=== PATIENT | female | born 1985 | race Caucasian/White ===

== ENCOUNTER 2016-10-05 12:28 | Emergency (ER) | payer OTHER ==
[~2016-10-05] VITALS: Ht 160 cm; Wt 94.8 kg
[~2016-10-05 12:28] MED LIST: CATAFLAM50 MG PO; CLARITAN; CLARITIN-D 12 H1 TAB PO; CLINDAMYCIN HC300 MG PO; DAYPRO600 M1 PO; ESOMEPRAZOLE MA40 M1 PO; FLAGYL500 MG PO; FLONASE0.05 MG/AC; FLOVENT HFA12 GM IH; FLUOXETINE HCL10 MG PO; FLUOXETINE20 MG PO; FLUTICASON0.05 MG/A1 NAS; GOOD NEIGHBOR L10 MG PO; GOOD SENSE ALLE10 MG PO; IBUPROFEN600 MG PO; IPRATROPIUM SPR 0.0; LORATADINE10 MG PO; MACROBID100 M1 PO; MIRALAX POWDER17 G1 PO; MOTRIN800 MG PO; PREDNISONE10 MG PO; PROAIR HFA AER; PROAIR HFA0.09 MG/AC IH; PROAIR HFA8.5 GM IH; PROZAC; PROZAC40 MG PO; QVAR 40 MCG; QVAR0.08 MG/AC; QVAR0.08 MG/AC INH; ROBITUSSIN AC 110 ML PO; Sarafem20 MG PO; ULTRAM50 MG PO; VICODIN 5/500 505 MG PO; ZITHROMAX250 MG PO
== END 2016-10-05 14:50 | disposition home or self-care (01) ==
LOC: ED 12:28
DX: S61.211A Laceration without foreign body of left index finger without damage to nail, initial encounter (principal); Z88.0 Allergy status to penicillin; Z88.8 Allergy status to other drugs, medicaments and biological substances; Z79.899 Other long term (current) drug therapy; W26.0XXA Contact with knife, initial encounter; Y93.9 Activity, unspecified; Y92.9 Unspecified place or not applicable; Y99.9 Unspecified external cause status

== ENCOUNTER → 2017-01-05 | Outpatient (CLI) | payer OTHER ==
[2017-01-05 16:35] LABS: BASO % 0.1 % (0.0-1.0); EOS # 0.1 10*3/uL (0.0-0.4); EOS % 1.2 % (1.0-4.0); HEMATOCRIT 36.3 % (37.0-47.0); HEMOGLOBIN 11.7 g/dl (12.0-16.0); LYMPH # 2.6 10*3/uL (1.3-4.4); LYMPH % 26.5 % (27.0-41.0); MEAN CELL VOLUME 91.4 fl (81.0-99.0); MEAN CORPUSCULAR HGB 29.5 pg (27.0-31.0); MEAN CORPUSCULAR HGB CONC 32.2 g/dl (33.0-37.0); MEAN PLATELET VOLUME 9.5 fl (9.6-12.3); MONO % 10.3 % (3.0-9.0); NEUT # 6.1 10*3/uL (2.3-7.9); NEUT % 61.5 % (47.0-73.0); PLATELET COUNT AUTOMATED 368 10*3/uL (130-400); RED BLOOD COUNT 3.97 10*6/uL (4.10-5.10); RED CELL DISTRI WIDTH 13.6 % (0-14.5); WHITE BLOOD COUNT 9.8 10*3/uL (4.8-10.8)
[2017-01-05 16:56] LABS: HEMOGLOBIN A1c 5.8 % (4.8-5.6)
[2017-01-05 17:09] LABS: ALBUMIN 3.4 gm/dl (3.1-4.5); ALKALINE PHOSPHATASE 91 U/L (45-117); BILIRUBIN, TOTAL 0.2 mg/dl (0.2-1.0); BUN 10 mg/dl (7-24); CARBON DIOXIDE 28 mmol/L (21-32); CHLORIDE 106 mmol/L (98-107); EST GLOM FILT AFRICAN AMERICAN > 60 ml/min; GLUCOSE 75 mg/dL (65-99); POTASSIUM 3.5 mmol/L (3.5-5.1); SGOT/AST 13 IU/L (3-35); SGPT/ALT 28 U/L (12-78); SODIUM 140 mmol/L (136-145); THYROXINE (T4) TOTAL 8.1 ug/dl (4.8-13.9)
[2017-01-05 19:30] LABS: VITAMIN D, 25-HYDROXY 12.1 ng/mL (30-100)
[2017-01-05 19:31] LABS: FOLIC ACID 11.73 ng/mL (>5.38)
== END | disposition home or self-care (01) ==
LOC: RESCLI 04:16 → LAB 04:16 → RESCLI 10:55
PROVIDERS: Internal Medicine
DX: R53.83 Other fatigue (principal)

== ENCOUNTER → 2017-02-02 | Outpatient (CLI) | payer OTHER | END | disposition home or self-care (01) | LOC: RESCLI 02:57 | DX: J45.30 Mild persistent asthma, uncomplicated (principal); E66.9 Obesity, unspecified; F41.9 Anxiety disorder, unspecified; Z76.0 Encounter for issue of repeat prescription ==

== ENCOUNTER 2017-02-09 00:19 | Emergency (ER) | payer OTHER ==
[~2017-02-09] VITALS: Ht 160 cm; Wt 98.0 kg
[2017-02-09] MEDS ORDERED: Flovent 220 M220 MCG INH (00:25)
[2017-02-09] MEDS ORDERED: FLUOXETINE HCL40 MG PO (00:25)
[2017-02-09] MEDS ORDERED: BUPROPION HCL300 MG PO (00:25)
[2017-02-09] MEDS ORDERED: NEXIUM40 MG PO (00:26)
[2017-02-09] MEDS ORDERED: FLUOXETINE HYDR20 M1 PO (00:26)
[2017-02-09 00:43] LABS: BASO % 0.1 % (0.0-1.0); EOS # 0.1 10*3/uL (0.0-0.4); EOS % 0.2 % (1.0-4.0); HEMATOCRIT 41.4 % (37.0-47.0); HEMOGLOBIN 13.6 g/dl (12.0-16.0); IG # 0.1 10*3/uL (0.0-0.1); LYMPH # 1.8 10*3/uL (1.3-4.4); LYMPH % 8.6 % (27.0-41.0); MEAN CELL VOLUME 91.4 fl (81.0-99.0); MEAN CORPUSCULAR HGB CONC 32.9 g/dl (33.0-37.0); MONO # 1.3 10*3/uL (0.1-1.0); MONO % 6.1 % (3.0-9.0); NEUT # 17.2 10*3/uL (2.3-7.9); NEUT % 84.6 % (47.0-73.0); PLATELET COUNT AUTOMATED 432 10*3/uL (130-400); RED BLOOD COUNT 4.53 10*6/uL (4.10-5.10); RED CELL DISTRI WIDTH 13.7 % (0-14.5); WHITE BLOOD COUNT 20.4 10*3/uL (4.8-10.8)
[2017-02-09 01:01] LABS: ALBUMIN 3.8 gm/dl (3.1-4.5); ALKALINE PHOSPHATASE 108 U/L (45-117); BILIRUBIN, TOTAL 0.4 mg/dl (0.2-1.0); BUN 14 mg/dl (7-24); CARBON DIOXIDE 28 mmol/L (21-32); CHLORIDE 105 mmol/L (98-107); EST GLOM FILT AFRICAN AMERICAN > 60 ml/min; GLUCOSE 167 mg/dL (65-99); POTASSIUM 4.3 mmol/L (3.5-5.1); SGOT/AST 18 IU/L (3-35); SGPT/ALT 29 U/L (12-78); SODIUM 139 mmol/L (136-145); TOTAL PROTEIN 8.8 gm/dL (6.4-8.2)
[2017-02-09 03:34] LABS: BILIRUBIN NEGATIVE (NEGATIVE); BLOOD NEGATIVE (NEGATIVE); CLARITY SL CLOUDY (CLEAR); COLOR YELLOW (YELLOW); GLUCOSE NEGATIVE (NEGATIVE); KETONE 1+ (NEGATIVE); LEUKO ESTERASE NEGATIVE (NEGATIVE); NITRITE NEGATIVE (NEGATIVE); PROTEIN TRACE (NEGATIVE); UROBILINOGEN 0.2 E.U./dl (0.2-1.0)
[2017-02-09 04:01] LABS: EPITHELIAL CELLS 15-20
[2017-02-09 04:02] LABS: MUCOUS TRACE; RBC 0-2 rbc/hpf (0-2); URINE REFLEX COMMENT NO (NO); WBC 0-2 wbc/hpf (0-5)
[2017-02-09] MEDS ORDERED: LOMOTIL 0.025 M1 TA1 PO (04:05)
[2017-02-09] MEDS ORDERED: ZOFRAN ODT4 MG SL (04:05)
== END 2017-02-09 05:01 | disposition home or self-care (01) ==
LOC: ED 00:19
PROVIDERS: Nurse Practitioner Family
DX: E86.0 Dehydration (principal); K52.9 Noninfective gastroenteritis and colitis, unspecified; Z79.899 Other long term (current) drug therapy; Z98.51 Tubal ligation status; Z88.0 Allergy status to penicillin; Z88.8 Allergy status to other drugs, medicaments and biological substances

== ENCOUNTER → 2017-05-05 | Outpatient (CLI) | payer OTHER ==
[~2017-05-05] MED LIST changes: +BUPROPION HCL300 MG PO; +FLUOXETINE HCL40 MG PO; +FLUOXETINE HYDR20 M1 PO; +Flovent 220 M220 MCG INH; +LOMOTIL 0.025 M1 TA1 PO; +NEXIUM40 MG PO; +ZOFRAN ODT4 MG SL
== END | disposition home or self-care (01) ==
LOC: RESCLI 01:40
DX: J30.2 Other seasonal allergic rhinitis (principal); F41.1 Generalized anxiety disorder; F32.9 Major depressive disorder, single episode, unspecified; J45.30 Mild persistent asthma, uncomplicated; E66.9 Obesity, unspecified

== ENCOUNTER → 2017-08-06 | Outpatient (CLI) | payer OTHER ==
[2017-08-06 12:41] LABS: ALBUMIN 3.5 gm/dl (3.1-4.5); BUN 10 mg/dl (7-24); CHLORIDE 104 mmol/L (98-107); CHOLESTEROL 204 mg/dL (<200); CREATININE 0.82 mg/dL (0.55-1.02); SGPT/ALT 31 U/L (12-78); SODIUM 138 mmol/L (136-145); TRIGLYCERIDES 181 mg/dl (<150); VLDL CHOLESTEROL 36 mg/dL (6-40)
[2017-08-06 12:42] LABS: HEMATOCRIT 38.5 % (37.0-47.0); HEMOGLOBIN 12.5 g/dl (12.0-16.0); MEAN CELL VOLUME 93.2 fl (81.0-99.0); MEAN CORPUSCULAR HGB 30.3 pg (27.0-31.0); MEAN CORPUSCULAR HGB CONC 32.5 g/dl (33.0-37.0); MEAN PLATELET VOLUME 9.5 fl (9.6-12.3); RED BLOOD COUNT 4.13 10*6/uL (4.10-5.10); RED CELL DISTRI WIDTH 13.6 % (0-14.5); WHITE BLOOD COUNT 8.2 10*3/uL (4.8-10.8)
[2017-08-06 12:46] LABS: ALKALINE PHOSPHATASE 104 U/L (45-117); HDL CHOLESTEROL 34 mg/dl (40-60); LDL CHOLESTEROL 134 mg/dL (9-159); SGOT/AST 12 IU/L (3-35); TOTAL PROTEIN 8.3 gm/dL (6.4-8.2)
== END | disposition home or self-care (01) ==
LOC: LAB 11:23
PROVIDERS: Family Medicine
DX: M25.551 Pain in right hip (principal); M25.552 Pain in left hip; E78.00 Pure hypercholesterolemia, unspecified; K21.9 Gastro-esophageal reflux disease without esophagitis; F41.1 Generalized anxiety disorder; E74.00 Glycogen storage disease, unspecified; R33.9 Retention of urine, unspecified; E55.9 Vitamin D deficiency, unspecified

== ENCOUNTER 2017-09-16 18:11 | Emergency (ER) | payer OTHER ==
[~2017-09-16] VITALS: Ht 160 cm; Wt 102.1 kg
[2017-09-16 18:57] LABS: BASO % 0.4 % (0.0-1.0); EOS # 0.2 10*3/uL (0.0-0.4); EOS % 1.7 % (1.0-4.0); HEMATOCRIT 38.7 % (37.0-47.0); HEMOGLOBIN 12.9 g/dl (12.0-16.0); LYMPH # 2.6 10*3/uL (1.3-4.4); LYMPH % 23.5 % (27.0-41.0); MEAN CELL VOLUME 90.4 fl (81.0-99.0); MEAN CORPUSCULAR HGB 30.1 pg (27.0-31.0); MEAN CORPUSCULAR HGB CONC 33.3 g/dl (33.0-37.0); MEAN PLATELET VOLUME 9.4 fl (9.6-12.3); MONO # 0.8 10*3/uL (0.1-1.0); MONO % 7.2 % (3.0-9.0); NEUT # 7.6 10*3/uL (2.3-7.9); PLATELET COUNT AUTOMATED 434 10*3/uL (130-400); RED BLOOD COUNT 4.28 10*6/uL (4.10-5.10); RED CELL DISTRI WIDTH 13.5 % (0-14.5); WHITE BLOOD COUNT 11.3 10*3/uL (4.8-10.8)
[2017-09-16 19:12] LABS: ALBUMIN 3.5 gm/dl (3.1-4.5); ALKALINE PHOSPHATASE 83 U/L (45-117); BUN 11 mg/dl (7-24); CHLORIDE 107 mmol/L (98-107); CREATININE 0.83 mg/dL (0.55-1.02); LIPASE 168 U/L (73-393); POTASSIUM 4.1 mmol/L (3.5-5.1); SGOT/AST 9 IU/L (3-35); SGPT/ALT 22 U/L (12-78); SODIUM 140 mmol/L (136-145); TOTAL PROTEIN 8.3 gm/dL (6.4-8.2)
[2017-09-16 19:15] LABS: BETA-HCG, QUANT < 1.0 mIU/mL (1-3)
[2017-09-16 19:40] LABS: BILIRUBIN NEGATIVE (NEGATIVE); BLOOD 3+ (NEGATIVE); CLARITY SL CLOUDY (CLEAR); COLOR YELLOW (YELLOW); GLUCOSE NEGATIVE (NEGATIVE); KETONE NEGATIVE (NEGATIVE); LEUKO ESTERASE NEGATIVE (NEGATIVE); NITRITE NEGATIVE (NEGATIVE); PH 7.5 (5.0-9.0); SPECIFIC GRAVITY 1.025 (1.005-1.030); UROBILINOGEN 0.2 E.U./dl (0.2-1.0)
[2017-09-16 19:56] LABS: BACTERIA TRACE; EPITHELIAL CELLS 0-2; RBC 41-50 rbc/hpf (0-2)
[2017-09-16] MEDS ORDERED: ANAPROX DS550 MG PO (20:51)
[2017-09-16] MEDS ORDERED: RECLIPSEN 28 D1 EACH PO (20:57)
[2017-09-16] MEDS ORDERED: BUPROPION HCL150 M1 PO (20:58)
[2017-09-16] MEDS ORDERED: FLUOXETINE HCL10 MG PO (21:00)
== END 2017-09-16 21:02 | disposition home or self-care (01) ==
LOC: ED 18:11
PROVIDERS: Physician Assistant
DX: N94.6 Dysmenorrhea, unspecified (principal); Z98.51 Tubal ligation status; Z79.899 Other long term (current) drug therapy; Z88.0 Allergy status to penicillin; Z88.8 Allergy status to other drugs, medicaments and biological substances

== ENCOUNTER → 2017-09-17 | Outpatient (CLI) | payer OTHER ==
[~2017-09-17] MED LIST changes: +ANAPROX DS550 MG PO; +BUPROPION HCL150 M1 PO; +RECLIPSEN 28 D1 EACH PO
== END | disposition home or self-care (01) ==
LOC: US 13:30
DX: N93.8 Other specified abnormal uterine and vaginal bleeding (principal)

== ENCOUNTER → 2017-12-11 | Outpatient (CLI) | payer OTHER ==
[2017-12-11 15:41] LABS: BASO % 0.3 % (0.0-1.0); EOS # 0.2 10*3/uL (0.0-0.4); EOS % 1.9 % (1.0-4.0); HEMATOCRIT 35.9 % (37.0-47.0); HEMOGLOBIN 11.7 g/dl (12.0-16.0); LYMPH # 2.9 10*3/uL (1.3-4.4); LYMPH % 30.3 % (27.0-41.0); MEAN CELL VOLUME 91.8 fl (81.0-99.0); MEAN CORPUSCULAR HGB 29.9 pg (27.0-31.0); MEAN CORPUSCULAR HGB CONC 32.6 g/dl (33.0-37.0); MEAN PLATELET VOLUME 9.1 fl (9.6-12.3); MONO % 10.2 % (3.0-9.0); NEUT # 5.5 10*3/uL (2.3-7.9); NEUT % 57.1 % (47.0-73.0); PLATELET COUNT AUTOMATED 374 10*3/uL (130-400); RED BLOOD COUNT 3.91 10*6/uL (4.10-5.10); RED CELL DISTRI WIDTH 14.1 % (0-14.5); WHITE BLOOD COUNT 9.7 10*3/uL (4.8-10.8)
[2017-12-11 16:01] LABS: FREE T4 0.86 ng/dl (0.76-1.46)
[2017-12-11 16:07] LABS: THYROID STIM HORMONE (HS) 0.928 uIU/ml (0.358-4.75)
[2017-12-11 16:28] LABS: VITAMIN D, 25-HYDROXY 12.8 ng/mL (30-100)
== END | disposition home or self-care (01) ==
LOC: LAB 15:24
PROVIDERS: Nurse Practitioner Family
DX: J45.909 Unspecified asthma, uncomplicated (principal); M25.551 Pain in right hip; M25.532 Pain in left wrist; R79.89 Other specified abnormal findings of blood chemistry; E78.00 Pure hypercholesterolemia, unspecified; K21.9 Gastro-esophageal reflux disease without esophagitis; F41.9 Anxiety disorder, unspecified

== ENCOUNTER → 2018-10-20 | Outpatient (CLI) | payer OTHER ==
[~2018-10-20] MED LIST changes: +PREDNISONE50 MG PO
== END | disposition home or self-care (01) ==
LOC: US 10:00
DX: K76.0 Fatty (change of) liver, not elsewhere classified (principal)

== ENCOUNTER 2018-12-13 18:20 | Emergency (ER) | payer OTHER ==
[~2018-12-13] VITALS: Ht 160 cm; Wt 102.1 kg
[~2018-12-13 18:20] MED LIST changes: -PREDNISONE50 MG PO
[2018-12-13] MEDS ORDERED: PREDNISONE50 MG PO (21:05)
== END 2018-12-13 21:14 | disposition home or self-care (01) ==
LOC: ED 18:20
DX: B34.9 Viral infection, unspecified (principal); Z88.0 Allergy status to penicillin; Z88.8 Allergy status to other drugs, medicaments and biological substances; Z79.899 Other long term (current) drug therapy

== ENCOUNTER → 2019-12-02 | Outpatient (CLI) | payer OTHER ==
[~2019-12-02] MED LIST changes: +PREDNISONE50 MG PO
[2019-12-02 13:06] LABS: BASO % 0.2 % (0.0-1.0); EOS # 0.2 10*3/uL (0.0-0.4); EOS % 1.7 % (1.0-4.0); HEMATOCRIT 40.2 % (37.0-47.0); LYMPH # 2.8 10*3/uL (1.3-4.4); LYMPH % 29.1 % (27.0-41.0); MEAN CELL VOLUME 92.2 fl (81.0-99.0); MEAN CORPUSCULAR HGB 29.8 pg (27.0-31.0); MEAN CORPUSCULAR HGB CONC 32.3 g/dl (33.0-37.0); MEAN PLATELET VOLUME 9.4 fl (9.6-12.3); MONO # 0.8 10*3/uL (0.1-1.0); MONO % 8.4 % (3.0-9.0); NEUT # 5.8 10*3/uL (2.3-7.9); NEUT % 60.4 % (47.0-73.0); PLATELET COUNT AUTOMATED 415 10*3/uL (130-400); RED BLOOD COUNT 4.36 10*6/uL (4.10-5.10); RED CELL DISTRI WIDTH 13.5 % (0-14.5); WHITE BLOOD COUNT 9.7 10*3/uL (4.8-10.8)
[2019-12-02 13:28] LABS: ALBUMIN 3.4 gm/dl (3.1-4.5); ALKALINE PHOSPHATASE 95 U/L (45-117); BUN 11 mg/dl (7-24); CHLORIDE 104 mmol/L (98-107); CHOLESTEROL 205 mg/dL (<200); CREATININE 0.81 mg/dL (0.55-1.02); HDL CHOLESTEROL 38 mg/dl (40-60); LDL CHOLESTEROL 138 mg/dL (9-159); POTASSIUM 4.2 mmol/L (3.5-5.1); SGOT/AST 16 IU/L (3-35); SGPT/ALT 33 U/L (12-78); SODIUM 138 mmol/L (136-145); TOTAL PROTEIN 7.9 gm/dL (6.4-8.2); TRIGLYCERIDES 143 mg/dl (<150); VLDL CHOLESTEROL 29 mg/dL (6-40)
[2019-12-04 01:08] LABS: RHEUMATOID ARTHRITIS FACTOR <10.0 IU/mL (0.0-13.9)
[2019-12-05 21:08] LABS: CCP ANTIBODIES IGG/IGA 8 units (0-19)
== END | disposition home or self-care (01) ==
LOC: LAB 12:22
PROVIDERS: Nurse Practitioner Family
DX: M25.50 Pain in unspecified joint (principal)

== ENCOUNTER 2020-08-24 13:42 | Emergency (ER) | payer OTHER ==
[~2020-08-24] VITALS: Ht 160 cm; Wt 108.9 kg
[2020-08-24] MEDS ORDERED: MEDROL DOSEPAK4 MG PO (15:44)
== END 2020-08-24 15:45 | disposition home or self-care (01) ==
LOC: ED 13:42
DX: M25.561 Pain in right knee (principal); Z88.0 Allergy status to penicillin; Z88.8 Allergy status to other drugs, medicaments and biological substances; Z79.899 Other long term (current) drug therapy

== ENCOUNTER → 2021-05-13 | Outpatient (CLI) | payer OTHER ==
[~2021-05-13] MED LIST changes: +MEDROL DOSEPAK4 MG PO
== END | disposition home or self-care (01) ==
LOC: RAD 18:42
PROVIDERS: ATTEND Nurse Practitioner
DX: J98.11 Atelectasis (principal); Z20.822 Contact with and (suspected) exposure to COVID-19

== ENCOUNTER → 2024-10-09 | Outpatient (CLI) | payer OTHER ==
[2024-10-09 17:10] LABS: BASO % 0.3 % (0.0-1.0); EOS # 0.2 10*3/uL (0.0-0.4); EOS % 2.1 % (1.0-4.0); HEMATOCRIT 35.8 % (37.0-47.0); MEAN CELL VOLUME 89.3 fl (81.0-99.0); MEAN CORPUSCULAR HGB 27.4 pg (27.0-31.0); MEAN CORPUSCULAR HGB CONC 30.7 g/dl (33.0-37.0); MEAN PLATELET VOLUME 8.9 fl (9.6-12.3); NEUT # 5.9 10*3/uL (2.3-7.9); NEUT % 57.1 % (47.0-73.0); PLATELET COUNT AUTOMATED 415 10*3/uL (130-400); RED BLOOD COUNT 4.01 10*6/uL (4.10-5.10); RED CELL DISTRI WIDTH 14.9 % (0-14.5); WHITE BLOOD COUNT 10.2 10*3/uL (4.8-10.8)
[2024-10-09 17:29] LABS: URINE AMPHETAMINES Negative (1000ng/ml); URINE BARBITURATES Negative (200ng/ml); URINE BENZODIAZEPINES Negative (200ng/ml); URINE CANNABINOIDS (THC) Negative (50ng/ml); URINE COCAINE Negative (300ng/ml); URINE METHADONE Negative (300ng/ml); URINE OPIATES Negative (300ng/ml); URINE PHENCYCLIDINE Negative (25ng/ml)
[2024-10-09 17:45] LABS: ALKALINE PHOSPHATASE 91 U/L (46-116); BUN 10 mg/dl (9-23); CHLORIDE 105 mmol/L (98-107); CHOLESTEROL 195 mg/dL (<200); FREE T4 1.04 ng/dl (0.89-1.76); LDL CHOLESTEROL 119 mg/dL (9-159); POTASSIUM 4.1 mmol/L (3.4-5.1); SGPT/ALT 26 U/L (5-49); TOTAL PROTEIN 7.7 gm/dL (6.0-8.0); TRIGLYCERIDES 188 mg/dl (<150)
== END | disposition home or self-care (01) ==
LOC: RESCLI 01:14
PROVIDERS: Student in an Organized Health Care Education/Training Program; ATTEND Internal Medicine
DX: F41.1 Generalized anxiety disorder (principal); J45.30 Mild persistent asthma, uncomplicated; F32.9 Major depressive disorder, single episode, unspecified; M79.7 Fibromyalgia; E66.9 Obesity, unspecified; R73.09 Other abnormal glucose; R19.7 Diarrhea, unspecified; N93.8 Other specified abnormal uterine and vaginal bleeding; E55.9 Vitamin D deficiency, unspecified; Z79.899 Other long term (current) drug therapy; Z98.890 Other specified postprocedural states; Z88.0 Allergy status to penicillin

== ENCOUNTER 2024-10-17 20:35 | Inpatient (IN) | payer OTHER ==
[~2024-10-17] VITALS: Ht 160 cm; Wt 104.1 kg
[2024-10-17] MEDS ORDERED: NEURONTIN300 MG PO (20:52)
[2024-10-17] MEDS ORDERED: LAMICTAL100 MG PO (20:52)
[2024-10-17] MEDS ORDERED: PROZAC40 M1 PO (20:52)
[2024-10-17 20:55] VITALS: BP 154/78
[2024-10-17] MEDS ORDERED: Ondansetron Hydrochloride 4 MG/2 ML VIAL IV ONE (21:10)
[2024-10-17] MEDS ORDERED: ACETAMINOPHEN 325 MG TAB PO ONE (21:10)
[2024-10-17] MEDS ORDERED: SODIUM CHLORIDE 0.9% 1,000 ML IV ONE (21:10)
[2024-10-17 21:24] LABS: BASO % 0.2 % (0.0-1.0); EOS % 0.1 % (1.0-4.0); HEMATOCRIT 38.4 % (37.0-47.0); MEAN CELL VOLUME 87.7 fl (81.0-99.0); MEAN CORPUSCULAR HGB 27.6 pg (27.0-31.0); MEAN CORPUSCULAR HGB CONC 31.5 g/dl (33.0-37.0); MEAN PLATELET VOLUME 8.8 fl (9.6-12.3); MONO # 0.8 10*3/uL (0.1-1.0); MONO % 8.3 % (3.0-9.0); NEUT # 7.4 10*3/uL (2.3-7.9); NEUT % 79.6 % (47.0-73.0); PLATELET COUNT AUTOMATED 449 10*3/uL (130-400); RED BLOOD COUNT 4.38 10*6/uL (4.10-5.10); RED CELL DISTRI WIDTH 15.3 % (0-14.5); WHITE BLOOD COUNT 9.3 10*3/uL (4.8-10.8)
[2024-10-17 21:50] LABS: ALKALINE PHOSPHATASE 95 U/L (46-116); BUN 11 mg/dl (9-23); CHLORIDE 102 mmol/L (98-107); POTASSIUM 3.6 mmol/L (3.4-5.1); SGPT/ALT 40 U/L (5-49); TOTAL PROTEIN 8.6 gm/dL (6.0-8.0)
[2024-10-17] MEDS ORDERED: SODIUM CHLORIDE 0.9% 1,000 ML IV SCH (23:05)
[2024-10-17] MEDS ORDERED: Ceftriaxone Sodium 1 GM/10 ML SYR IV ONE (23:05)
[2024-10-17] MEDS ORDERED: AZITHROMYCIN 250 ML IV ONE (23:05)
[2024-10-17] MEDS ORDERED: Dexamethasone Sodium Phospha 4 MG/ML VIAL IV ONE (23:05)
[2024-10-17 23:07] VITALS: BP 147/79
[2024-10-18] VITALS (7 sets, daily range): BP systolic 118–148; BP diastolic 56–78
[2024-10-18] MEDS ORDERED: ACETAMINOPHEN 325 MG TAB PO PRN (00:05)
[2024-10-18] MEDS ORDERED: MORPHINE Sulfate 2 MG/ML SYR IV PRN (00:05)
[2024-10-18] MEDS ORDERED: ACETAMINOPHEN 650 MG SUPP R PRN (00:05)
[2024-10-18] MEDS ORDERED: Ondansetron Hydrochloride 4 MG/2 ML VIAL IV PRN (00:05)
[2024-10-18] MEDS ORDERED: Acetaminophen/Hydrocodone 5 MG/325 MG TABLET PO PRN (00:05)
[2024-10-18] MEDS ORDERED: Albuterol Sulfate 2.5 MG/3 ML VIAL NEB PRN (00:10)
[2024-10-18] MEDS ORDERED: MAGNESIUM SULFATE 50 ML IV ONE (00:10)
[2024-10-18] MEDS ORDERED: Albuterol Sulfate 2.5 MG/3 ML VIAL NEB SCH (00:35)
[2024-10-18] MEDS ORDERED: IBUPROFEN 200 MG TAB PO ONE (02:45)
[2024-10-18 05:33] LABS: ALKALINE PHOSPHATASE 80 U/L (46-116); BUN 9 mg/dl (9-23); CHLORIDE 107 mmol/L (98-107); POTASSIUM 3.6 mmol/L (3.4-5.1); SGPT/ALT 45 U/L (5-49); TOTAL PROTEIN 7.3 gm/dL (6.0-8.0)
[2024-10-18 06:06] LABS: BILIRUBIN Negative (Negative); BLOOD 3+ (Negative); CLARITY Clear (Clear); COLOR Yellow (Yellow); GLUCOSE 1+ (Negative); KETONE 1+ (Negative); LEUKO ESTERASE Negative (Negative); NITRITE Negative (Negative); PH 5.5 (4.5-8.0); UROBILINOGEN 0.2 E.U./dl (0.0-1.0)
[2024-10-18 06:32] LABS: BASO % 0.2 % (0.0-1.0); HEMATOCRIT 33.1 % (37.0-47.0); MEAN CELL VOLUME 87.6 fl (81.0-99.0); MEAN CORPUSCULAR HGB 27.8 pg (27.0-31.0); MEAN CORPUSCULAR HGB CONC 31.7 g/dl (33.0-37.0); MEAN PLATELET VOLUME 9.1 fl (9.6-12.3); MONO # 0.4 10*3/uL (0.1-1.0); MONO % 4.1 % (3.0-9.0); NEUT % 86.2 % (47.0-73.0); PLATELET COUNT AUTOMATED 391 10*3/uL (130-400); RED BLOOD COUNT 3.78 10*6/uL (4.10-5.10); RED CELL DISTRI WIDTH 15.6 % (0-14.5); WHITE BLOOD COUNT 10.4 10*3/uL (4.8-10.8)
[2024-10-18 06:33] LABS: RBC TNTC rbc/hpf (0-2)
[2024-10-18] MEDS ORDERED: GABAPENTIN 300 MG CAP PO SCH (10:00)
[2024-10-18] MEDS ORDERED: Ceftriaxone Sodium 1 GM in SYRINGE INFUSION 10 ML IV SCH ×2 (10:00→22:00)
[2024-10-18] MEDS ORDERED: methylPREDNISolone sod succ 40 MG VIAL IV SCH ×2 (10:00)
[2024-10-18] MEDS ORDERED: LAMOTRIGINE 100 MG TAB PO SCH (10:00)
[2024-10-18] MEDS ORDERED: AZITHROMYCIN 250 ML IV SCH (10:00)
[2024-10-18] MEDS ORDERED: Fluoxetine Hydrochloride 20 MG CAP PO SCH (10:00)
[2024-10-18] MEDS ORDERED: GUAIFENESIN 600 MG TAB ER PO SCH (10:00)
[2024-10-18] MEDS ORDERED: Enoxaparin Sodium 40 MG/0.4 ML SYR SC SCH (10:00)
[2024-10-18] MEDS ORDERED: Ceftriaxone Sodium 1 GM in SYRINGE INFUSION 10 ML IV ONE (12:10)
[2024-10-18] MEDS ORDERED: Ceftriaxone Sodium 2 GM in SYRINGE INFUSION 20 ML IV SCH (22:00)
[2024-10-19] VITALS: BP 125/62
[2024-10-19] MEDS ORDERED: AZITHROMYCIN 250 ML IV SCH
[2024-10-19 06:32] LABS: BASO % 0.1 % (0.0-1.0); HEMATOCRIT 31.5 % (37.0-47.0); MEAN CELL VOLUME 86.8 fl (81.0-99.0); MEAN CORPUSCULAR HGB CONC 31.1 g/dl (33.0-37.0); MEAN PLATELET VOLUME 9.3 fl (9.6-12.3); MONO # 1.1 10*3/uL (0.1-1.0); MONO % 11.1 % (3.0-9.0); NEUT # 7.7 10*3/uL (2.3-7.9); NEUT % 75.7 % (47.0-73.0); PLATELET COUNT AUTOMATED 414 10*3/uL (130-400); RED BLOOD COUNT 3.63 10*6/uL (4.10-5.10); RED CELL DISTRI WIDTH 15.7 % (0-14.5); WHITE BLOOD COUNT 10.1 10*3/uL (4.8-10.8)
[2024-10-19 06:54] LABS: BUN 8 mg/dl (9-23); CHLORIDE 105 mmol/L (98-107); POTASSIUM 4.1 mmol/L (3.4-5.1)
[2024-10-19 08:00] VITALS: BP 114/60
[2024-10-19] MEDS ORDERED: DEXTROSE 10 % IN WATER 250 ML IV PRN (10:30)
[2024-10-19] MEDS ORDERED: INSULIN LISPRO 1 UNIT/0.01 ML SQ SCH (11:30)
[2024-10-19 12:00] VITALS: BP 132/69
[2024-10-19 16:00] VITALS: BP 129/66
[2024-10-19] MEDS ORDERED: methylPREDNISolone sod succ 40 MG VIAL IV SCH (16:00)
[2024-10-19 20:00] VITALS: BP 108/59
[2024-10-20] VITALS: BP 160/80
[2024-10-20 08:00] VITALS: BP 149/58
[2024-10-20 12:00] VITALS: BP 145/70
[2024-10-20 16:00] VITALS: BP 147/80
[2024-10-21] VITALS: BP 145/71
[2024-10-21 07:13] LABS: BASO % 0.2 % (0.0-1.0); EOS % 0.1 % (1.0-4.0); MEAN CELL VOLUME 87.7 fl (81.0-99.0); MEAN CORPUSCULAR HGB 27.3 pg (27.0-31.0); MEAN CORPUSCULAR HGB CONC 31.1 g/dl (33.0-37.0); MONO # 0.7 10*3/uL (0.1-1.0); MONO % 8.1 % (3.0-9.0); NEUT # 5.8 10*3/uL (2.3-7.9); NEUT % 67.6 % (47.0-73.0); NUCLEATED RED BLOOD CELL 0.5 % (0.0-0.0); PLATELET COUNT AUTOMATED 514 10*3/uL (130-400); RED BLOOD COUNT 3.99 10*6/uL (4.10-5.10); RED CELL DISTRI WIDTH 15.3 % (0-14.5); WHITE BLOOD COUNT 8.6 10*3/uL (4.8-10.8)
[2024-10-21 07:38] LABS: BUN 13 mg/dl (9-23); CHLORIDE 101 mmol/L (98-107); POTASSIUM 4.4 mmol/L (3.4-5.1)
[2024-10-21 08:00] VITALS: BP 170/82
[2024-10-21 09:20] VITALS: BP 144/60
[2024-10-21 16:00] VITALS: BP 147/70
[2024-10-21 20:00] VITALS: BP 133/76
[2024-10-22] VITALS: BP 148/83
[2024-10-22 05:56] LABS: BUN 18 mg/dl (9-23); CHLORIDE 100 mmol/L (98-107); POTASSIUM 4.6 mmol/L (3.4-5.1)
[2024-10-22 06:36] LABS: HEMATOCRIT 34.8 % (37.0-47.0); MEAN CELL VOLUME 88.3 fl (81.0-99.0); MEAN CORPUSCULAR HGB 27.4 pg (27.0-31.0); MEAN PLATELET VOLUME 9.1 fl (9.6-12.3); NUCLEATED RED BLOOD CELL 0.1 10*3/uL (0.0-0.0); NUCLEATED RED BLOOD CELL 0.4 % (0.0-0.0); PLATELET COUNT AUTOMATED 560 10*3/uL (130-400); RED BLOOD COUNT 3.94 10*6/uL (4.10-5.10); RED CELL DISTRI WIDTH 15.4 % (0-14.5)
[2024-10-22 06:37] LABS: MANUAL DIFF REFLEX YES
[2024-10-22 07:17] LABS: OVALOCYTES FEW; POLYCHROMASIA SLIGHT; TOTAL CELLS COUNTED 100 #CELLS
[2024-10-22 07:18] LABS: PLATELET SUFFICIENCY HIGH (NORMAL)
[2024-10-22 08:00] VITALS: BP 119/58
[2024-10-22] MEDS ORDERED: methylPREDNISolone sod succ 40 MG VIAL IV SCH (10:00)
[2024-10-22 12:00] VITALS: BP 147/79
[2024-10-22] MEDS ORDERED: PREDNISONE10 MG PO (14:21)
[2024-10-22] MEDS ORDERED: VENT7GM INH (14:21)
[2024-10-22] MEDS ORDERED: DOXYCYCLINE HY100 M3 PO (14:21)
[2024-10-22 16:00] VITALS: BP 135/62
[2024-10-22 20:00] VITALS: BP 138/83
[2024-10-23] VITALS: BP 128/71
[2024-10-23 05:59] LABS: BUN 20 mg/dl (9-23); CHLORIDE 99 mmol/L (98-107); POTASSIUM 4.9 mmol/L (3.4-5.1)
[2024-10-23 06:38] LABS: HEMATOCRIT 36.9 % (37.0-47.0); MEAN CELL VOLUME 86.4 fl (81.0-99.0); MEAN CORPUSCULAR HGB 27.4 pg (27.0-31.0); MEAN CORPUSCULAR HGB CONC 31.7 g/dl (33.0-37.0); MEAN PLATELET VOLUME 8.9 fl (9.6-12.3); PLATELET COUNT AUTOMATED 613 10*3/uL (130-400); RED BLOOD COUNT 4.27 10*6/uL (4.10-5.10); RED CELL DISTRI WIDTH 15.7 % (0-14.5); WHITE BLOOD COUNT 16.2 10*3/uL (4.8-10.8)
[2024-10-23 06:44] LABS: MANUAL DIFF REFLEX YES
[2024-10-23 07:44] LABS: PLATELET SUFFICIENCY HIGH (NORMAL); TOTAL CELLS COUNTED 100 #CELLS
[2024-10-23 08:00] VITALS: BP 134/82
[2024-10-23 12:06] VITALS: BP 142/70
[2024-10-23 16:00] VITALS: BP 146/68
== END 2024-10-23 19:31 | disposition home or self-care (01) | DRG 871 ==
LOC: ED 20:35 → 4E 23:10 → EDHOLD 23:10 → 4E 23:40
PROVIDERS: Internal Medicine; Nurse Practitioner Family; ADMIT Internal Medicine; ATTEND Internal Medicine
DX: A41.89 Other specified sepsis (principal); J15.9 Unspecified bacterial pneumonia; J45.901 Unspecified asthma with (acute) exacerbation; J98.11 Atelectasis; Z68.41 Body mass index [BMI] 40.0-44.9, adult; F32.A Depression, unspecified; E66.01 Morbid (severe) obesity due to excess calories; R73.9 Hyperglycemia, unspecified; D64.9 Anemia, unspecified; D75.839 Thrombocytosis, unspecified; Z20.822 Contact with and (suspected) exposure to COVID-19; M79.7 Fibromyalgia; Z88.0 Allergy status to penicillin; Z88.8 Allergy status to other drugs, medicaments and biological substances; Z91.09 Other allergy status, other than to drugs and biological substances; Z79.899 Other long term (current) drug therapy; Z82.3 Family history of stroke; Z79.01 Long term (current) use of anticoagulants; Z79.2 Long term (current) use of antibiotics; Z87.891 Personal history of nicotine dependence

== ENCOUNTER → 2024-10-24 | Outpatient (CLI) | payer OTHER ==
[~2024-10-24] MED LIST changes: +DOXYCYCLINE HY100 M3 PO; +LAMICTAL100 MG PO; +NEURONTIN300 MG PO; +PROZAC40 M1 PO; +VENT7GM INH
== END | disposition home or self-care (01) ==
LOC: RESCLI 16:04
DX: J18.9 Pneumonia, unspecified organism (principal); Z79.899 Other long term (current) drug therapy; Z88.0 Allergy status to penicillin; Z88.8 Allergy status to other drugs, medicaments and biological substances

== ENCOUNTER → 2024-11-29 | Outpatient (CLI) | payer OTHER | END | disposition home or self-care (01) | LOC: RESCLI 15:40 | PROVIDERS: ATTEND Family Medicine | DX: R05.9 Cough, unspecified (principal); M79.7 Fibromyalgia; F32.9 Major depressive disorder, single episode, unspecified; J45.30 Mild persistent asthma, uncomplicated; Z79.899 Other long term (current) drug therapy; Z88.0 Allergy status to penicillin ==

== ENCOUNTER → 2025-01-30 | Outpatient (CLI) | payer OTHER ==
[2025-01-30 14:27] LABS: BASO % 0.3 % (0.0-1.0); EOS # 0.2 10*3/uL (0.0-0.4); EOS % 2.4 % (1.0-4.0); HEMATOCRIT 32.5 % (37.0-47.0); MEAN CELL VOLUME 88.8 fl (81.0-99.0); MEAN CORPUSCULAR HGB 28.1 pg (27.0-31.0); MEAN CORPUSCULAR HGB CONC 31.7 g/dl (33.0-37.0); MEAN PLATELET VOLUME 9.2 fl (9.6-12.3); MONO # 0.9 10*3/uL (0.1-1.0); MONO % 9.6 % (3.0-9.0); NEUT # 5.3 10*3/uL (2.3-7.9); NEUT % 56.1 % (47.0-73.0); PLATELET COUNT AUTOMATED 449 10*3/uL (130-400); RED BLOOD COUNT 3.66 10*6/uL (4.10-5.10); RED CELL DISTRI WIDTH 15.5 % (0-14.5); WHITE BLOOD COUNT 9.5 10*3/uL (4.8-10.8)
== END | disposition home or self-care (01) ==
LOC: LAB 13:52
PROVIDERS: ATTEND Nurse Practitioner Women's Health
DX: N93.9 Abnormal uterine and vaginal bleeding, unspecified (principal); R53.83 Other fatigue

== ENCOUNTER → 2025-03-08 | Outpatient (CLI) | payer OTHER | END | disposition home or self-care (01) | LOC: US 02-24 13:00 | PROVIDERS: ATTEND Obstetrics & Gynecology | DX: N93.9 Abnormal uterine and vaginal bleeding, unspecified (principal) ==

== ENCOUNTER → 2025-03-21 | Outpatient (CLI) | payer OTHER | END | disposition home or self-care (01) | LOC: RESCLI 11:06 | PROVIDERS: ATTEND Internal Medicine Infectious Disease | DX: H00.019 Hordeolum externum unspecified eye, unspecified eyelid (principal); M79.7 Fibromyalgia; F32.9 Major depressive disorder, single episode, unspecified; E55.9 Vitamin D deficiency, unspecified; R73.09 Other abnormal glucose; J45.30 Mild persistent asthma, uncomplicated; Z79.899 Other long term (current) drug therapy; Z88.0 Allergy status to penicillin ==

== ENCOUNTER 2025-03-23 10:43 | Emergency (ER) | payer OTHER ==
[~2025-03-23] VITALS: Ht 160 cm; Wt 106.6 kg
[2025-03-23] MEDS ORDERED: CLINDAMYCIN HCL 300 MG CAPSULE PO ONE ×2 (11:35→11:40)
== END 2025-03-23 11:41 | disposition home or self-care (01) ==
LOC: ED 10:43
DX: H01.005 Unspecified blepharitis left lower eyelid (principal); J45.909 Unspecified asthma, uncomplicated; K21.9 Gastro-esophageal reflux disease without esophagitis; F32.A Depression, unspecified; Z79.899 Other long term (current) drug therapy; Z88.0 Allergy status to penicillin; Z88.8 Allergy status to other drugs, medicaments and biological substances; Z98.51 Tubal ligation status; Z98.890 Other specified postprocedural states

== ENCOUNTER → 2025-04-23 | Outpatient (CLI) | payer OTHER | END | disposition home or self-care (01) | LOC: RESCLI 00:13 | PROVIDERS: ATTEND Student in an Organized Health Care Education/Training Program | DX: M79.7 Fibromyalgia (principal); F32.9 Major depressive disorder, single episode, unspecified; J45.30 Mild persistent asthma, uncomplicated; T78.40XA Allergy, unspecified, initial encounter; D64.9 Anemia, unspecified; Z79.899 Other long term (current) drug therapy; X58.XXXA Exposure to other specified factors, initial encounter ==

== ENCOUNTER → 2025-09-03 | Outpatient (CLI) | payer OTHER | END | disposition home or self-care (01) | LOC: RESCLI 01:34 | PROVIDERS: ATTEND Internal Medicine | DX: M54.50 Low back pain, unspecified (principal); D50.9 Iron deficiency anemia, unspecified; J30.2 Other seasonal allergic rhinitis; M79.7 Fibromyalgia; J45.30 Mild persistent asthma, uncomplicated; E78.5 Hyperlipidemia, unspecified; F32.9 Major depressive disorder, single episode, unspecified; R73.09 Other abnormal glucose; Z79.899 Other long term (current) drug therapy ==